=== PATIENT | female | born 1945 | race Two or more races ===

== ENCOUNTER 2022-12-08 08:44 | Emergency (ER) | payer OTHER ==
[~2022-12-08] VITALS: Ht 160 cm; Wt 53.5 kg
[2022-12-08] MEDS ORDERED: KLOR-CON M1010 MEQ (08:56)
[2022-12-08] MEDS ORDERED: TOPROL XL100 M1 (08:57)
[2022-12-08] MEDS ORDERED: NORVASC2.5 M1 (08:57)
[2022-12-08] MEDS ORDERED: COZAAR100 MG (08:58)
[2022-12-08] MEDS ORDERED: ARICEPT5 MG (08:58)
== END 2022-12-08 12:46 | disposition home or self-care (01) ==
LOC: ER 08:44
DX: R10.13 Epigastric pain (principal); Z88.6 Allergy status to analgesic agent